=== PATIENT | female | born 1955 | race Caucasian/White ===

== ENCOUNTER 2018-04-01 10:01 | Inpatient (IN) | payer MEDICAID ==
[~2018-04-01] VITALS: Ht 167.6 cm; Wt 106.0 kg
[2018-04-01] MEDS ORDERED: SODIUM CHLORIDE 0.9% 1,000 ML IV ONE ×2 (10:27)
[2018-04-01 11:01] LABS: Basophils # (auto) 0 uL; Basophils % (auto) 0.5 % (0.0-2.0); Eosinophils # (auto) 0 uL; Hematocrit 48.4 % (36.0-46.0); Hemoglobin 15.8 g/dL (12.2-16.2); Lymphocytes # (auto) 0.5 uL; Mean Corpuscular Hemoglobin 28.9 pg (28.0-32.0); Mean Corpuscular Hgb Conc. 32.6 g/dL (32.0-36.0); Mean Corpuscular Volume 88.7 fL (80.0-100.0); Monocytes # (auto) 0.2 uL; Monocytes % (auto) 4.5 % (0.0-12.0); Neutrophils # (auto) 3.1 uL; Nucleated Red Blood Cells % 0.2 %; Platelet Count (auto) 153 10^3/uL (140-450); Red Blood Cells 5.46 10^6/uL (4.0-5.20); Red Cell Distribution Width 14.8 % (11.8-14.3); White Blood Cell 3.8 10^3/uL (4.4-10.8)
[2018-04-01 11:14] LABS: INR 1.04 (0.9-1.15); Partial Thromboplastin Time 23.6 sec (23.78-33.04); Prothrombin Time 11.1 sec (9.27-12.13)
[2018-04-01 11:23] LABS: Albumin 3.2 g/dL (3.4-5.0); BUN/Creatinine Ratio 16.3; Bilirubin, Total 0.6 mg/dL (0.2-1.0); Potassium 3.9 mmol/L (3.5-5.1); Total Protein 7.3 g/dL (6.4-8.2)
[2018-04-01] MEDS ORDERED: FUROSEMIDE 40 MG/4 ML VIAL IV ONE (13:00)
[2018-04-01] MEDS ORDERED: DOCUSATE SOD 100 MG CAP PO PRN (13:45)
[2018-04-01] MEDS ORDERED: MORPHINE SULF(PF) 0.5MG/ML 10ML VIAL IV PRN (13:45)
[2018-04-01] MEDS ORDERED: POTASSIUM CHL 10 Meq TABLET PO ONE (13:45)
[2018-04-01] MEDS ORDERED: NITROGLYCERIN 0.4 MG SL TAB SL PRN (13:45)
[2018-04-01] MEDS ORDERED: ONDANSETRON HCL 4 MG/2 ML VIAL IV PRN (13:45)
[2018-04-01] MEDS ORDERED: ACETAMINOPHEN 325 MG TAB PO PRN (13:45)
[2018-04-01] MEDS ORDERED: TEMAZEPAM 15 MG CAP PO PRN (13:45)
[2018-04-01] MEDS: MULTIPLE VITAMIN TAB PO SCH (13:53)
[2018-04-01] MEDS: SODIUM CHLOR 0.9% PF (SALINE LOCK) 10ML VIAL/SYR IV SCH ×2 (14:00→21:15)
[2018-04-01] MEDS: ENOXAPARIN SOD 100 MG/1 ML SYRINGE SC SCH ×2 (14:05→21:15)
[2018-04-01] MEDS ORDERED: ASPirin-EC 81 mg tab PO ONE (14:15)
[2018-04-01] MEDS ORDERED: CLOPIDOGREL BISULFATE 75 MG TAB PO ONE (14:15)
[2018-04-01 14:33] LABS: Urine Bacteria NONE SEEN /hpf (None Seen); Urine Blood Negative /uL (Negative); Urine WBC 33 /hpf (0 - 5)
[2018-04-01] MEDS ORDERED: LORazepam 2MG/ML-1ML VIAL IV PRN (17:45)
[2018-04-01 18:33] LABS: Cholesterol 187 mg/dL (< 200); HDL Cholesterol 40 mg/dL (40-59); LDL Cholesterol 139 mg/dL (< 100); Triglycerides 80 mg/dL (< 150)
[2018-04-01] MEDS ORDERED: IOHEXOL 350 MG/ML 100ML IJ ONE (19:04)
[2018-04-01] MEDS: BOOST PLUS 8 ounce PO SCH (20:00)
[2018-04-01] MEDS: FAMOTIDINE 20 MG TAB PO SCH (21:15)
[2018-04-01] MEDS: ATORVASTATIN 20 MG TAB PO SCH (21:15)
[2018-04-01] MEDS: HYDROcodone-ACET 5/325MG TAB PO PRN (21:22)
[2018-04-02] MEDS: HYDROcodone-ACET 5/325MG TAB PO PRN ×2 (04:05→08:13)
[2018-04-02] MEDS: cloNIDine HCL 0.1 MG TAB PO PRN ×2 (04:05→08:12)
[2018-04-02 05:13] LABS: Basophils # (auto) 0 uL; Basophils % (auto) 0.6 % (0.0-2.0); Eosinophils # (auto) 0 uL; Eosinophils % (auto) 0.2 % (0.0-7.0); Hematocrit 49.9 % (36.0-46.0); Hemoglobin 16.7 g/dL (12.2-16.2); Lymphocytes % (auto) 18.4 % (10.0-50.0); Mean Corpuscular Hemoglobin 29.2 pg (28.0-32.0); Mean Corpuscular Hgb Conc. 33.5 g/dL (32.0-36.0); Mean Corpuscular Volume 87.1 fL (80.0-100.0); Monocytes # (auto) 0.4 uL; Monocytes % (auto) 7.2 % (0.0-12.0); Neutrophils # (auto) 3.9 uL; Neutrophils % (auto) 73.6 % (37.0-80.0); Nucleated Red Blood Cells % 0.2 %; Platelet Count (auto) 154 10^3/uL (140-450); Red Blood Cells 5.73 10^6/uL (4.0-5.20); White Blood Cell 5.3 10^3/uL (4.4-10.8)
[2018-04-02 05:23] LABS: Albumin 3.4 g/dL (3.4-5.0); BUN/Creatinine Ratio 16.4; Calcium 8.1 mg/dL (8.5-10.1)
[2018-04-02 05:25] LABS: Bilirubin, Total 1.4 mg/dL (0.2-1.0); Total Protein 7.5 g/dL (6.4-8.2)
[2018-04-02 05:33] LABS: Potassium 2.9 mmol/L (3.5-5.1)
[2018-04-02] MEDS ORDERED: POTASSIUM CHLORIDE 40 MEQ, LIDOCAINE 1% (LOCAL ANESTH.) 4 ML in SODIUM CHL 0.9% 250 ML IV ONE (05:45)
[2018-04-02] MEDS ORDERED: POTASSIUM CHL 20 Meq TABLET PO ONE (05:45)
[2018-04-02] MEDS: SODIUM CHLOR 0.9% PF (SALINE LOCK) 10ML VIAL/SYR IV SCH ×3 (06:00→22:48)
[2018-04-02] MEDS: POTASSIUM CHL 20MEQ/100ML 100 ML IV SCH ×2 (07:03→09:06)
[2018-04-02] MEDS: BOOST PLUS 8 ounce PO SCH ×3 (08:00→18:45)
[2018-04-02 09:58] LABS: Folate (Folic Acid) 11.82 ng/mL (5.38-24)
[2018-04-02] MEDS ORDERED: CLOPIDOGREL BISULFATE 75 MG TAB PO SCH (10:00)
[2018-04-02] MEDS ORDERED: POTASSIUM CHL 10 Meq TABLET PO SCH (10:00)
[2018-04-02] MEDS ORDERED: ASPirin-EC 81 mg tab PO SCH (10:00)
[2018-04-02] MEDS: MULTIPLE VITAMIN TAB PO SCH (10:04)
[2018-04-02] MEDS: FAMOTIDINE 20 MG TAB PO SCH ×2 (10:04→22:48)
[2018-04-02] MEDS: ENOXAPARIN SOD 100 MG/1 ML SYRINGE SC SCH ×2 (10:05→22:48)
[2018-04-02] MEDS: FUROSEMIDE 40 MG/4 ML VIAL IV SCH (10:12)
[2018-04-02] MEDS ORDERED: METOPROLOL TARTRATE 25 MG TAB PO ONE (13:15)
[2018-04-02] MEDS ORDERED: LORazepam 2MG/ML-1ML VIAL IV PRN (13:30)
[2018-04-02] MEDS ORDERED: LEV100T PO (14:40)
[2018-04-02] MEDS ORDERED: PAR20T PO (14:40)
[2018-04-02] MEDS ORDERED: CYAN100060 IM (14:40)
[2018-04-02] MEDS ORDERED: MORP-74 PO (14:40)
[2018-04-02] MEDS: MORPHINE SULF 30 mg ER tab PO SCH ×2 (14:56→22:48)
[2018-04-02 22:07] VITALS: BP 140/94
[2018-04-02 22:12] VITALS: BP 146/84
[2018-04-02] MEDS: ATORVASTATIN 20 MG TAB PO SCH (22:48)
[2018-04-02] MEDS: METOPROLOL TARTRATE 25 MG TAB PO SCH (22:48)
[2018-04-03 00:03] VITALS: BP 121/80
[2018-04-03] MEDS: HYDROcodone-ACET 5/325MG TAB PO PRN ×2 (01:55→16:26)
[2018-04-03] MEDS: SODIUM CHLOR 0.9% PF (SALINE LOCK) 10ML VIAL/SYR IV SCH ×3 (06:00→21:14)
[2018-04-03 06:11] LABS: Basophils # (auto) 0 uL; Basophils % (auto) 0.5 % (0.0-2.0); Eosinophils # (auto) 0 uL; Eosinophils % (auto) 0.4 % (0.0-7.0); Hematocrit 51.4 % (36.0-46.0); Hemoglobin 17.1 g/dL (12.2-16.2); Lymphocytes % (auto) 22.1 % (10.0-50.0); Mean Corpuscular Hemoglobin 29.3 pg (28.0-32.0); Mean Corpuscular Hgb Conc. 33.3 g/dL (32.0-36.0); Mean Corpuscular Volume 88.1 fL (80.0-100.0); Monocytes # (auto) 0.6 uL; Monocytes % (auto) 13.1 % (0.0-12.0); Neutrophils % (auto) 63.9 % (37.0-80.0); Nucleated Red Blood Cells % 0.1 %; Platelet Count (auto) 137 10^3/uL (140-450); Red Blood Cells 5.84 10^6/uL (4.0-5.20); White Blood Cell 4.7 10^3/uL (4.4-10.8)
[2018-04-03 07:39] LABS: Albumin 3.6 g/dL (3.4-5.0); BUN/Creatinine Ratio 17.2; Bilirubin, Total 1.7 mg/dL (0.2-1.0); Calcium 8.9 mg/dL (8.5-10.1); Magnesium 2.6 mg/dL (1.6-2.6); Potassium 3.9 mmol/L (3.5-5.1); Total Protein 8.1 g/dL (6.4-8.2)
[2018-04-03] MEDS: BOOST PLUS 8 ounce PO SCH ×3 (08:00→18:00)
[2018-04-03] MEDS: FUROSEMIDE 40 MG/4 ML VIAL IV SCH (09:51)
[2018-04-03] MEDS: POTASSIUM CHL 10 Meq TABLET PO SCH (09:52)
[2018-04-03] MEDS: METOPROLOL TARTRATE 25 MG TAB PO SCH ×2 (09:52→21:14)
[2018-04-03] MEDS: FAMOTIDINE 20 MG TAB PO SCH ×2 (09:53→21:15)
[2018-04-03] MEDS: MORPHINE SULF 30 mg ER tab PO SCH ×3 (09:53→21:15)
[2018-04-03] MEDS: MULTIPLE VITAMIN TAB PO SCH (09:53)
[2018-04-03 13:00] VITALS: BP 103/70
[2018-04-03 15:00] VITALS: BP 109/76
[2018-04-03 17:00] VITALS: BP 109/76
[2018-04-03] MEDS: ATORVASTATIN 20 MG TAB PO SCH (21:14)
[2018-04-03 22:00] VITALS: BP 108/74
[2018-04-04 05:00] VITALS: BP 94/65
[2018-04-04 05:51] LABS: Basophils # (auto) 0 uL; Basophils % (auto) 0.5 % (0.0-2.0); Eosinophils # (auto) 0.1 uL; Hemoglobin 17.4 g/dL (12.2-16.2); Lymphocytes # (auto) 1.1 uL; Lymphocytes % (auto) 24.8 % (10.0-50.0); Mean Corpuscular Hemoglobin 29.2 pg (28.0-32.0); Mean Corpuscular Hgb Conc. 33.4 g/dL (32.0-36.0); Mean Corpuscular Volume 87.5 fL (80.0-100.0); Monocytes # (auto) 0.5 uL; Monocytes % (auto) 11.1 % (0.0-12.0); Neutrophils # (auto) 2.7 uL; Neutrophils % (auto) 61.6 % (37.0-80.0); Nucleated Red Blood Cells % 0.2 %; Platelet Count (auto) 145 10^3/uL (140-450); Red Blood Cells 5.94 10^6/uL (4.0-5.20); White Blood Cell 4.4 10^3/uL (4.4-10.8)
[2018-04-04] MEDS: SODIUM CHLOR 0.9% PF (SALINE LOCK) 10ML VIAL/SYR IV SCH ×3 (06:15→22:20)
[2018-04-04 06:17] LABS: Albumin 3.4 g/dL (3.4-5.0); Calcium 8.5 mg/dL (8.5-10.1); Magnesium 2.4 mg/dL (1.6-2.6)
[2018-04-04 06:19] LABS: Potassium 2.9 mmol/L (3.5-5.1)
[2018-04-04 06:20] LABS: BUN/Creatinine Ratio 23.3
[2018-04-04 06:25] LABS: Bilirubin, Total 1.8 mg/dL (0.2-1.0); Total Protein 7.5 g/dL (6.4-8.2)
[2018-04-04] MEDS ORDERED: POTASSIUM CHL 20MEQ/100ML 100 ML IV ONE (07:45)
[2018-04-04] MEDS: BOOST PLUS 8 ounce PO SCH ×3 (08:25→18:00)
[2018-04-04 09:00] VITALS: BP 117/71
[2018-04-04] MEDS: HYDROcodone-ACET 5/325MG TAB PO PRN ×2 (09:06→17:56)
[2018-04-04] MEDS: FUROSEMIDE 40 MG/4 ML VIAL IV SCH (10:25)
[2018-04-04] MEDS: ASPirin-EC 81 mg tab PO SCH (10:26)
[2018-04-04] MEDS: POTASSIUM CHL 10 Meq TABLET PO SCH (10:26)
[2018-04-04] MEDS: METOPROLOL TARTRATE 25 MG TAB PO SCH ×2 (10:26→21:28)
[2018-04-04] MEDS: MORPHINE SULF 30 mg ER tab PO SCH ×2 (10:27→21:28)
[2018-04-04] MEDS: FAMOTIDINE 20 MG TAB PO SCH ×2 (10:27→21:29)
[2018-04-04] MEDS: MULTIPLE VITAMIN TAB PO SCH (10:27)
[2018-04-04 13:00] VITALS: BP 95/53
[2018-04-04 17:00] VITALS: BP 123/56
[2018-04-04] MEDS: ATORVASTATIN 20 MG TAB PO SCH (21:27)
[2018-04-04 21:39] VITALS: BP 111/75
[2018-04-05 04:48] VITALS: BP 116/64
[2018-04-05] MEDS: LEVOTHYROXINE SODIUM 100 MCG TAB PO SCH (06:00)
[2018-04-05] MEDS: SODIUM CHLOR 0.9% PF (SALINE LOCK) 10ML VIAL/SYR IV SCH ×3 (06:00→21:53)
[2018-04-05 09:00] VITALS: BP 123/42
[2018-04-05] MEDS: HYDROcodone-ACET 5/325MG TAB PO PRN ×3 (09:15→17:05)
[2018-04-05] MEDS: ASPirin-EC 81 mg tab PO SCH (09:40)
[2018-04-05] MEDS: BOOST PLUS 8 ounce PO SCH ×3 (09:40→18:00)
[2018-04-05] MEDS: POTASSIUM CHL 10 Meq TABLET PO SCH (09:41)
[2018-04-05] MEDS: MULTIPLE VITAMIN TAB PO SCH (09:41)
[2018-04-05] MEDS: FAMOTIDINE 20 MG TAB PO SCH ×2 (09:42→21:53)
[2018-04-05] MEDS: MORPHINE SULF 30 mg ER tab PO SCH ×2 (09:42→21:53)
[2018-04-05] MEDS: FUROSEMIDE 20 MG TAB PO SCH (09:43)
[2018-04-05] MEDS: METOPROLOL TARTRATE 25 MG TAB PO SCH ×2 (10:00→21:52)
[2018-04-05 13:00] VITALS: BP 110/59
[2018-04-05 17:00] VITALS: BP 90/49
[2018-04-05] MEDS ORDERED: LORazepam 0.5 MG TAB PO PRN (17:00)
[2018-04-05] MEDS ORDERED: LORazepam 2MG/ML-1ML VIAL IV ONE (17:00)
[2018-04-05] MEDS: ATORVASTATIN 20 MG TAB PO SCH (21:52)
[2018-04-05 22:04] VITALS: BP 128/65
[2018-04-06 05:15] VITALS: BP 91/74
[2018-04-06] MEDS: SODIUM CHLOR 0.9% PF (SALINE LOCK) 10ML VIAL/SYR IV SCH ×2 (06:00→19:44)
[2018-04-06] MEDS: HYDROcodone-ACET 5/325MG TAB PO PRN (06:35)
[2018-04-06] MEDS: LEVOTHYROXINE SODIUM 100 MCG TAB PO SCH (06:36)
[2018-04-06 09:09] VITALS: BP_SYST 104; BP_SYST 125; BP_DIAS 64; BP_DIAS 69
[2018-04-06 09:36] VITALS: BP 104/69
[2018-04-06] MEDS: FAMOTIDINE 20 MG TAB PO SCH (10:34)
[2018-04-06] MEDS: ASPirin-EC 81 mg tab PO SCH (10:34)
[2018-04-06] MEDS: MULTIPLE VITAMIN TAB PO SCH (10:35)
[2018-04-06] MEDS: POTASSIUM CHL 10 Meq TABLET PO SCH (10:36)
[2018-04-06] MEDS: FUROSEMIDE 20 MG TAB PO SCH (10:36)
[2018-04-06] MEDS: MORPHINE SULF 30 mg ER tab PO SCH (10:37)
[2018-04-06] MEDS: METOPROLOL TARTRATE 25 MG TAB PO SCH (10:37)
[2018-04-06] MEDS: BOOST PLUS 8 ounce PO SCH ×3 (10:38→18:00)
[2018-04-06 13:23] VITALS: BP 120/80
[2018-04-06 17:16] VITALS: BP 113/73
[2018-04-06 17:22] VITALS: BP 120/80
== END 2018-04-06 19:33 | disposition home or self-care (01) | DRG 45 ==
LOC: ER 10:01 → EDBD 10:01 → TELE 10:02 → TELE-WESTW 04-03 14:42
PROVIDERS: ADMIT Internal Medicine; ATTEND Internal Medicine
PROC: 5A09457 Assistance with Respiratory Ventilation, 24-96 Consecutive Hours, Continuous Positive Airway Pressure (ICD-10-PCS; principal; 2018-04-03)
DX: I63.9 Cerebral infarction, unspecified (principal); I21.4 Non-ST elevation (NSTEMI) myocardial infarction; I61.9 Nontraumatic intracerebral hemorrhage, unspecified; J96.21 Acute and chronic respiratory failure with hypoxia; G93.6 Cerebral edema; D75.1 Secondary polycythemia; E83.51 Hypocalcemia; I50.43 Acute on chronic combined systolic (congestive) and diastolic (congestive) heart failure; E44.0 Moderate protein-calorie malnutrition; I13.0 Hypertensive heart and chronic kidney disease with heart failure and stage 1 through stage 4 chronic kidney disease, or unspecified chronic kidney disease; N39.0 Urinary tract infection, site not specified; Z88.2 Allergy status to sulfonamides; E06.3 Autoimmune thyroiditis; E87.6 Hypokalemia; F17.200 Nicotine dependence, unspecified, uncomplicated; F32.9 Major depressive disorder, single episode, unspecified; G89.4 Chronic pain syndrome; G92 Toxic encephalopathy; J44.1 Chronic obstructive pulmonary disease with (acute) exacerbation; J98.11 Atelectasis; K80.70 Calculus of gallbladder and bile duct without cholecystitis without obstruction; N18.2 Chronic kidney disease, stage 2 (mild); W18.39XA Other fall on same level, initial encounter; Y93.89 Activity, other specified; Y92.89 Other specified places as the place of occurrence of the external cause; Z79.02 Long term (current) use of antithrombotics/antiplatelets; Z79.82 Long term (current) use of aspirin; Z79.899 Other long term (current) drug therapy; Z80.1 Family history of malignant neoplasm of trachea, bronchus and lung; Z99.81 Dependence on supplemental oxygen
CPT/HCPCS: 36415; 36600; 70450; 70551; 71045; 71275; 73502; 78582; 80053; 80061; 81001; 82607; 82746; 82805; 82962; 83735; 83880; 84132; 84443; 84484; 85025; 85379; 85610; 85730; 87086; 92610; 93005; 93306; 93886; 94660; 95819; 96361; 96374; J2001; J2405; J3480

== ENCOUNTER 2018-11-03 09:24 | Emergency (ER) | payer MEDICAID ==
[~2018-11-03] VITALS: Ht 172.7 cm; Wt 113.4 kg
[~2018-11-03 09:24] MED LIST: CYAN100060 IM; LEV100T PO; MORP-74 PO; PAR20T PO
[2018-11-03 09:51] LABS: Eosinophils # (auto) 0.2 uL; Eosinophils % (auto) 1.7 % (0.0-7.0); Nucleated Red Blood Cells % 0.2 %
[2018-11-03 09:52] LABS: Basophils # (auto) 0.1 uL; Basophils % (auto) 0.6 % (0.0-2.0); Hematocrit 53.9 % (36.0-46.0); Hemoglobin 17.7 g/dL (12.2-16.2); Lymphocytes # (auto) 1.2 uL; Lymphocytes % (auto) 10.6 % (10.0-50.0); Mean Corpuscular Hemoglobin 28.8 pg (28.0-32.0); Mean Corpuscular Hgb Conc. 32.9 g/dL (32.0-36.0); Mean Corpuscular Volume 87.7 fL (80.0-100.0); Monocytes # (auto) 0.6 uL; Neutrophils # (auto) 9.2 uL; Neutrophils % (auto) 82.1 % (37.0-80.0); Platelet Count (auto) 125 10^3/uL (140-450); Red Blood Cells 6.15 10^6/uL (4.0-5.20); Red Cell Distribution Width 15.3 % (11.8-14.3); White Blood Cell 11.2 10^3/uL (4.4-10.8)
[2018-11-03 10:08] LABS: Alanine Aminotransferase 14 U/L (13-56); Albumin 2.7 g/dL (3.4-5.0); Anion Gap 13 (5-15); Aspartate Aminotransferase 34 U/L (15-37); BUN/Creatinine Ratio 8.2; Blood Urea Nitrogen 8 mg/dL (7-18); Calcium 8.5 mg/dL (8.5-10.1); Carbon Dioxide 23 mmol/L (21-32); Chloride 100 mmol/L (98-107); GFR African American > 60 mL/min; GFR Non-African American > 60 mL/min; Glucose 217 mg/dL (74-106); Magnesium 2.2 mg/dL (1.6-2.6); Potassium 3.9 mmol/L (3.5-5.1); Sodium 136 mmol/L (136-145)
[2018-11-03 10:13] LABS: Alkaline Phosphatase 103 U/L (45-117); Bilirubin, Total 1.8 mg/dL (0.2-1.0)
[2018-11-03] MEDS ORDERED: SUCCINYLCHOLINE CHLORIDE 20 MG/ML 10ML VIAL IV ONE (11:00)
[2018-11-03] MEDS ORDERED: ETOMIDATE (2MG/ML) 20ML VIAL IV ONE (11:00)
[2018-11-03 11:15] VITALS: BP 150/108
[2018-11-03] MEDS ORDERED: MIDAZOLAM DRIP 50 mg/50mL 50 ML IV SCH (11:20)
[2018-11-03] MEDS ORDERED: PROPOFOL 100 ML IV SCH (11:20)
[2018-11-03] MEDS ORDERED: MIDAZOLAM DRIP 50 mg/50mL 50 ML IV ONE (11:21)
[2018-11-03 11:30] VITALS: BP 146/110
[2018-11-03] MEDS ORDERED: fentaNYL Drip 2500mCg/250mlNS 250 ML IV SCH (11:34)
[2018-11-03] MEDS ORDERED: fentaNYL Drip 2500mCg/250mlNS 250 ML IV ONE (11:38)
[2018-11-03 12:57] LABS: Urine Bacteria MANY /hpf (None Seen); Urine Blood 1+ /uL (Negative); Urine Budding Yeast OCCASIONAL /hpf (None Seen); Urine Mucus FEW (None Seen); Urine Specific Gravity 1.024 (1.001-1.035); Urine WBC 164 /hpf (0 - 5); Urine WBC Clumps PRESENT /hpf (None Seen)
== END 2018-11-03 10:23 | disposition short-term general hospital (02) ==
LOC: ER 09:24 → EDBD 09:24 → ER 10:23
DX: I63.9 Cerebral infarction, unspecified (principal); R79.89 Other specified abnormal findings of blood chemistry
CPT/HCPCS: 31500; 36415; 70450; 71045; 73610; 80053; 81001; 83735; 83880; 84484; 85025; 93005; 96365; 96368; 99291; J0330; J2250; J2704; 94002; A4565

== ENCOUNTER 2019-09-13 12:30 | Emergency (ER) | payer MEDICAID ==
[~2019-09-13] VITALS: Ht 175.3 cm; Wt 108.9 kg
[~2019-09-13 12:30] MED LIST changes: -MORP-74 PO; +MORP30TA5 PO
[2019-09-13 16:49] VITALS: BP 167/120
[2019-09-13] MEDS ORDERED: MEPERIDINE HCL (50 MG/ML) 1 ML VIAL IM ONE (18:00)
== END 2019-09-13 18:39 | disposition home or self-care (01) ==
LOC: ER 12:31
DX: G54.6 Phantom limb syndrome with pain (principal); I50.9 Heart failure, unspecified; N18.9 Chronic kidney disease, unspecified; Z88.2 Allergy status to sulfonamides; Z79.899 Other long term (current) drug therapy
CPT/HCPCS: 96372; 99283; J2175

== ENCOUNTER 2020-11-23 19:27 | Emergency (ER) | payer MEDICAID ==
[~2020-11-23] VITALS: Ht 167.6 cm; Wt 131.5 kg
[2020-11-23 21:42] LABS: Basophils # (auto) 0 10 ^3/uL (0-0.2); Basophils % (auto) 0.9 % (0.0-2.0); Eosinophils # (auto) 0 10 ^3/uL (0-0.8); Eosinophils % (auto) 0.9 % (0.0-7.0); Hematocrit 47.4 % (36.0-46.0); Hemoglobin 14.7 g/dL (12.2-16.2); Lymphocytes # (auto) 0.7 10 ^3/uL (0.4-5.4); Mean Corpuscular Hemoglobin 24.5 pg (28.0-32.0); Mean Corpuscular Hgb Conc. 31.1 g/dL (32.0-36.0); Mean Corpuscular Volume 78.9 fL (80.0-100.0); Monocytes # (auto) 0.2 10 ^3/uL (0-1.3); Monocytes % (auto) 5.6 % (0.0-12.0); Neutrophils # (auto) 3.4 10 ^3/uL (1.6-8.6); Neutrophils % (auto) 77.6 % (37.0-80.0); Nucleated Red Blood Cells % 0.4 %; Platelet Count (auto) 162 10^3/uL (140-450); Red Blood Cells 6.01 10^6/uL (4.0-5.20); Red Cell Distribution Width 19.1 % (11.8-14.3); White Blood Cell 4.4 10^3/uL (4.4-10.8)
[2020-11-23 22:02] LABS: Albumin 3.2 g/dL (3.4-5.0); Anion Gap 0 (5-15); Blood Urea Nitrogen 13 mg/dL (7-18); Calcium 8.1 mg/dL (8.5-10.1); Carbon Dioxide 33 mmol/L (21-32); Chloride 102 mmol/L (98-107); Glucose 103 mg/dL (74-106); Potassium 4.8 mmol/L (3.5-5.1); Sodium 135 mmol/L (136-145)
[2020-11-23 22:10] LABS: Alanine Aminotransferase 12 U/L (13-56); Alkaline Phosphatase 100 U/L (45-117); Aspartate Aminotransferase 9 U/L (15-37); BUN/Creatinine Ratio 13.3; Bilirubin, Total 0.5 mg/dL (0.2-1.0); GFR African American 74 mL/min; GFR Non-African American 61 mL/min; Total Protein 7.6 g/dL (6.4-8.2)
[2020-11-23 22:41] LABS: INR 2.28 (0.9-1.15)
[2020-11-24 04:10] LABS: Urine Bacteria MANY /hpf (None Seen); Urine Blood Negative /uL (Negative); Urine Hyaline Cast FEW /lpf (0 - 2); Urine Mucus FEW (None Seen); Urine Specific Gravity 1.024 (1.001-1.035); Urine WBC 12 /hpf (0 - 5)
[2020-11-24] MEDS ORDERED: CEFTRIAXONE SODIUM 2 GM in D5W 5% 50 ML IV ONE (04:30)
[2020-11-24] MEDS ORDERED: cefTRIAXone 1GM/50ML D5W 50 ML IV ONE (05:08)
[2020-11-24] MEDS ORDERED: cefTRIAXone SOD 1,000 MG VL ONE (05:08)
[2020-11-24 06:24] VITALS: BP 146/86
== END 2020-11-24 06:28 | disposition home or self-care (01) ==
LOC: EDBD 19:27 → ER 19:27
DX: T40.2X1A Poisoning by other opioids, accidental (unintentional), initial encounter (principal); N39.0 Urinary tract infection, site not specified; Z79.899 Other long term (current) drug therapy; Z88.1 Allergy status to other antibiotic agents; Y92.89 Other specified places as the place of occurrence of the external cause
CPT/HCPCS: 36415; 70450; 71045; 80053; 81001; 83605; 83735; 83880; 84484; 85025; 85610; 93005; 96360; 96365; 99285; J0696; J7060

== ENCOUNTER 2022-08-10 23:04 | Inpatient (IN) | payer MEDICAID ==
[~2022-08-10] VITALS: Ht 175.3 cm; Wt 133.1 kg
[2022-08-11] VITALS (21 sets, daily range): BP systolic 107–161; BP diastolic 67–90
[2022-08-11 01:17] LABS: Albumin 2.6 g/dL (3.4-5.0); Potassium 4.9 mmol/L (3.5-5.1)
[2022-08-11 01:21] LABS: Bilirubin, Total 2.3 mg/dL (0.2-1.0); Total Protein 6.4 g/dL (6.4-8.2)
[2022-08-11 01:23] LABS: Basophils # (auto) 0 10 ^3/uL (0-0.2); Basophils % (auto) 0.3 % (0.0-2.0); Eosinophils # (auto) 0 10 ^3/uL (0-0.8); Eosinophils % (auto) 0.1 % (0.0-7.0); Hemoglobin 16.7 g/dL (12.2-16.2); Lymphocytes # (auto) 0.6 10 ^3/uL (0.4-5.4); Lymphocytes % (auto) 6.7 % (10.0-50.0); Mean Corpuscular Hemoglobin 24.5 pg (28.0-32.0); Mean Corpuscular Hgb Conc. 31.5 g/dL (32.0-36.0); Mean Corpuscular Volume 77.8 fL (80.0-100.0); Monocytes # (auto) 0.7 10 ^3/uL (0-1.3); Neutrophils # (auto) 7.5 10 ^3/uL (1.6-8.6); Neutrophils % (auto) 84.9 % (37.0-80.0); Nucleated Red Blood Cells % 0.6 %; Red Blood Cells 6.81 10^6/uL (4.0-5.20); White Blood Cell 8.8 10^3/uL (4.4-10.8)
[2022-08-11 01:26] LABS: Red Cell Distribution Width 20.5 % (11.8-14.3)
[2022-08-11] MEDS ORDERED: ENOXAPARIN SOD 120 MG/0.8 ML SYRINGE SC ONE (02:00)
[2022-08-11] MEDS ORDERED: FUROSEMIDE 100 MG/10ML VIAL IV ONE (02:15)
[2022-08-11] MEDS ORDERED: ALBUMIN 25% 100 ML IV ONE (05:15)
[2022-08-11] MEDS: SODIUM CHLOR 0.9% PF (SALINE LOCK) 10ML VIAL/SYR IV SCH ×3 (06:16→21:37)
[2022-08-11 06:28] LABS: Albumin 2.7 g/dL (3.4-5.0); BUN/Creatinine Ratio 10.3; Calcium 8.3 mg/dL (8.5-10.1)
[2022-08-11] MEDS ORDERED: NITROGLYCERIN 0.4 MG SL TAB SL PRN (06:30)
[2022-08-11] MEDS ORDERED: MORPHINE SULFATE INJ 2 MG/ml SYRG IV PRN (06:30)
[2022-08-11 06:42] LABS: Bilirubin, Total 2.6 mg/dL (0.2-1.0); Total Protein 6.5 g/dL (6.4-8.2)
[2022-08-11] MEDS: LEVOTHYROXINE SODIUM 100 MCG TAB PO SCH (06:45)
[2022-08-11 07:01] LABS: Basophils # (auto) 0 10 ^3/uL (0-0.2); Eosinophils # (auto) 0 10 ^3/uL (0-0.8); Eosinophils % (auto) 0.1 % (0.0-7.0); Monocytes # (auto) 0.7 10 ^3/uL (0-1.3); Red Blood Cells 7.07 10^6/uL (4.0-5.20)
[2022-08-11 07:03] LABS: Basophils % (auto) 0.3 % (0.0-2.0); Hematocrit 54.8 % (36.0-46.0); Hemoglobin 17.3 g/dL (12.2-16.2); Lymphocytes # (auto) 0.7 10 ^3/uL (0.4-5.4); Lymphocytes % (auto) 7.8 % (10.0-50.0); Mean Corpuscular Hemoglobin 24.5 pg (28.0-32.0); Mean Corpuscular Hgb Conc. 31.6 g/dL (32.0-36.0); Mean Corpuscular Volume 77.5 fL (80.0-100.0); Monocytes % (auto) 7.5 % (0.0-12.0); Neutrophils # (auto) 7.7 10 ^3/uL (1.6-8.6); Neutrophils % (auto) 84.3 % (37.0-80.0); Nucleated Red Blood Cells % 0.5 %; White Blood Cell 9.2 10^3/uL (4.4-10.8)
[2022-08-11 07:18] LABS: Red Cell Distribution Width 20.8 % (11.8-14.3)
[2022-08-11 08:08] LABS: Urine Bacteria MOD /hpf (None Seen); Urine Blood Negative /uL (Negative); Urine Hyaline Cast FEW /lpf (0 - 2); Urine Specific Gravity 1.006 (1.001-1.035); Urine WBC 1 /hpf (0 - 5)
[2022-08-11] MEDS: FUROSEMIDE 100 MG/10ML VIAL IV SCH (10:31)
[2022-08-11] MEDS: ENOXAPARIN SOD 120 MG/0.8 ML SYRINGE SC SCH (10:31)
[2022-08-11] MEDS: HYDROcodone-ACET 5/325MG TAB PO PRN ×3 (10:35→19:55)
[2022-08-11] MEDS ORDERED: OXY5T PO (11:15)
[2022-08-11] MEDS ORDERED: WARF3TAB22 PO (11:15)
[2022-08-11 14:41] LABS: BUN/Creatinine Ratio 9.5; Potassium 3.5 mmol/L (3.5-5.1)
[2022-08-12] VITALS (29 sets, daily range): BP systolic 96–144; BP diastolic 58–107
[2022-08-12] MEDS: HYDROcodone-ACET 5/325MG TAB PO PRN ×4 (03:02→21:03)
[2022-08-12] MEDS: LEVOTHYROXINE SODIUM 100 MCG TAB PO SCH (05:55)
[2022-08-12] MEDS: SODIUM CHLOR 0.9% PF (SALINE LOCK) 10ML VIAL/SYR IV SCH ×3 (05:55→21:04)
[2022-08-12 07:00] LABS: Alanine Aminotransferase 9 U/L (13-56); Alkaline Phosphatase 65 U/L (45-117); Anion Gap 12 (5-15); Aspartate Aminotransferase 16 U/L (15-37); BUN/Creatinine Ratio 14.1; Blood Urea Nitrogen 14 mg/dL (7-18); Carbon Dioxide 26 mmol/L (21-32); Chloride 97 mmol/L (98-107); GFR African American 73 mL/min; GFR Non-African American 60 mL/min; Glucose 89 mg/dL (74-106); Potassium 3.5 mmol/L (3.5-5.1); Sodium 135 mmol/L (136-145)
[2022-08-12 07:01] LABS: Albumin 2.7 g/dL (3.4-5.0); Bilirubin, Total 2.5 mg/dL (0.2-1.0); Calcium 8.2 mg/dL (8.5-10.1); Magnesium 1.8 mg/dL (1.6-2.6); Total Protein 7.1 g/dL (6.4-8.2)
[2022-08-12 07:36] LABS: Hematocrit 50.9 % (36.0-46.0); Hemoglobin 16.2 g/dL (12.2-16.2); White Blood Cell 7.1 10^3/uL (4.4-10.8)
[2022-08-12 07:37] LABS: Mean Corpuscular Hemoglobin 24.4 pg (28.0-32.0); Mean Corpuscular Hgb Conc. 31.7 g/dL (32.0-36.0); Mean Corpuscular Volume 76.9 fL (80.0-100.0); Red Blood Cells 6.62 10^6/uL (4.0-5.20)
[2022-08-12 07:54] LABS: Red Cell Distribution Width 20.6 % (11.8-14.3)
[2022-08-12 08:33] LABS: Basophils % (manual) 0 (0.0-2.0); Blast Cells 0; Metamyelocytes % 0; Myelocytes % 0; Promyelocytes % 0; Reactive Lymphocytes 0
[2022-08-12 08:52] LABS: Band Neutrophils % (manual) 1; Eosinophils % (manual) 1 (0-7); Lymphocytes % (manual) 9 (10.0-50.0); Monocytes % (manual) 9 (0-12)
[2022-08-12] MEDS: ENOXAPARIN SOD 120 MG/0.8 ML SYRINGE SC SCH (10:25)
[2022-08-12] MEDS: FUROSEMIDE 100 MG/10ML VIAL IV SCH (10:25)
[2022-08-12] MEDS: MORPHINE SULFATE INJ 2 MG/ml SYRG IV PRN (17:08)
[2022-08-12] MEDS ORDERED: IOHEXOL 350 MG/ML 100ML IJ ONE (17:28)
[2022-08-12] MEDS ORDERED: HEPARIN SODIUM (PORCINE) 5000 UNITS/ML 1ML VIAL IV ONE (18:15)
[2022-08-12] MEDS ORDERED: HEPARIN DRIP/D5W 100UNITS/ML 250 ML IV SCH (18:15)
[2022-08-12] MEDS: IPRATROPIUM BROM 0.5 MG/2.5ML INH SOL NEB SCH (18:22)
[2022-08-12] MEDS: ALBUTEROL SULF 2.5 MG/0.5ML(0.5%) NEB SOLN NEB SCH (18:22)
[2022-08-12 18:46] LABS: Eosinophils # (auto) 0 10 ^3/uL (0-0.8); Eosinophils % (auto) 0.3 % (0.0-7.0); Hemoglobin 16.9 g/dL (12.2-16.2); Lymphocytes # (auto) 0.5 10 ^3/uL (0.4-5.4); Mean Corpuscular Hgb Conc. 31.6 g/dL (32.0-36.0); Monocytes # (auto) 0.4 10 ^3/uL (0-1.3); Monocytes % (auto) 5.9 % (0.0-12.0)
[2022-08-12 18:49] LABS: Basophils # (auto) 0.1 10 ^3/uL (0-0.2); Basophils % (auto) 0.7 % (0.0-2.0); Hematocrit 53.4 % (36.0-46.0); Lymphocytes % (auto) 6.7 % (10.0-50.0); Mean Corpuscular Hemoglobin 24.2 pg (28.0-32.0); Mean Corpuscular Volume 76.7 fL (80.0-100.0); Neutrophils # (auto) 6.2 10 ^3/uL (1.6-8.6); Neutrophils % (auto) 86.4 % (37.0-80.0); Nucleated Red Blood Cells % 0.2 %; Red Blood Cells 6.97 10^6/uL (4.0-5.20); White Blood Cell 7.2 10^3/uL (4.4-10.8)
[2022-08-12 18:54] LABS: Red Cell Distribution Width 20.7 % (11.8-14.3)
[2022-08-12 19:03] LABS: INR 1.18 (0.9-1.15); Partial Thromboplastin Time 33.3 sec (24.6-33.4)
[2022-08-13] VITALS (24 sets, daily range): BP systolic 109–152; BP diastolic 61–103
[2022-08-13 01:59] LABS: INR 1.17 (0.9-1.15)
[2022-08-13] MEDS ORDERED: HEPARIN DRIP/D5W 100UNITS/ML 250 ML IV SCH (03:15)
[2022-08-13] MEDS: IPRATROPIUM BROM 0.5 MG/2.5ML INH SOL NEB SCH ×3 (06:07→18:48)
[2022-08-13] MEDS: ALBUTEROL SULF 2.5 MG/0.5ML(0.5%) NEB SOLN NEB SCH ×3 (06:07→18:49)
[2022-08-13] MEDS: LEVOTHYROXINE SODIUM 100 MCG TAB PO SCH (06:30)
[2022-08-13] MEDS: SODIUM CHLOR 0.9% PF (SALINE LOCK) 10ML VIAL/SYR IV SCH ×3 (06:30→22:19)
[2022-08-13] MEDS: MORPHINE SULFATE INJ 2 MG/ml SYRG IV PRN ×2 (06:32→11:59)
[2022-08-13] MEDS: HYDROcodone-ACET 5/325MG TAB PO PRN ×2 (07:37→20:43)
[2022-08-13 08:59] LABS: Folate (Folic Acid) 9.68 ng/mL (5.38-24)
[2022-08-13] MEDS: FUROSEMIDE 100 MG/10ML VIAL IV SCH (10:00)
[2022-08-13 10:25] LABS: Albumin 2.8 g/dL (3.4-5.0); BUN/Creatinine Ratio 17.6; Calcium 8.4 mg/dL (8.5-10.1); Potassium 3.4 mmol/L (3.5-5.1)
[2022-08-13 10:29] LABS: Basophils # (auto) 0 10 ^3/uL (0-0.2); Basophils % (auto) 0.2 % (0.0-2.0); Eosinophils # (auto) 0 10 ^3/uL (0-0.8); Eosinophils % (auto) 0.5 % (0.0-7.0); Hemoglobin 16.5 g/dL (12.2-16.2); Lymphocytes # (auto) 0.6 10 ^3/uL (0.4-5.4); Mean Corpuscular Volume 76.8 fL (80.0-100.0); Monocytes # (auto) 0.6 10 ^3/uL (0-1.3); Nucleated Red Blood Cells % 0.3 %
[2022-08-13 10:30] LABS: Bilirubin, Total 1.5 mg/dL (0.2-1.0); Total Protein 7.2 g/dL (6.4-8.2)
[2022-08-13 10:32] LABS: Hematocrit 52.4 % (36.0-46.0); INR 1.15 (0.9-1.15); Lymphocytes % (auto) 9.9 % (10.0-50.0); Mean Corpuscular Hemoglobin 24.1 pg (28.0-32.0); Mean Corpuscular Hgb Conc. 31.4 g/dL (32.0-36.0); Monocytes % (auto) 9.3 % (0.0-12.0); Neutrophils % (auto) 80.1 % (37.0-80.0); Partial Thromboplastin Time 37.6 sec (24.6-33.4); Red Blood Cells 6.83 10^6/uL (4.0-5.20); White Blood Cell 6.2 10^3/uL (4.4-10.8)
[2022-08-13] MEDS ORDERED: POTASSIUM EFFERVESENT TAB 25 MEQ GT ONE (13:45)
[2022-08-13 18:58] LABS: INR 1.24 (0.9-1.15)
[2022-08-13] MEDS: DOCUSATE SOD 100 MG CAP PO PRN (20:06)
[2022-08-13] MEDS: ACETAMINOPHEN 325 MG TAB PO PRN (22:18)
[2022-08-13 23:53] LABS: INR 1.15 (0.9-1.15); Partial Thromboplastin Time 64.4 sec (24.6-33.4)
[2022-08-14] VITALS (22 sets, daily range): BP systolic 106–156; BP diastolic 61–100
[2022-08-14] MEDS: MORPHINE SULFATE INJ 2 MG/ml SYRG IV PRN (00:27)
[2022-08-14] MEDS: SODIUM CHLOR 0.9% PF (SALINE LOCK) 10ML VIAL/SYR IV SCH ×3 (06:23→22:00)
[2022-08-14] MEDS: ALBUTEROL SULF 2.5 MG/0.5ML(0.5%) NEB SOLN NEB SCH ×3 (06:24→18:06)
[2022-08-14] MEDS: IPRATROPIUM BROM 0.5 MG/2.5ML INH SOL NEB SCH ×3 (06:24→18:06)
[2022-08-14] MEDS: LEVOTHYROXINE SODIUM 100 MCG TAB PO SCH (06:25)
[2022-08-14] MEDS: HYDROcodone-ACET 5/325MG TAB PO PRN ×4 (06:26→22:31)
[2022-08-14 06:27] LABS: INR 1.16 (0.9-1.15)
[2022-08-14 06:40] LABS: Partial Thromboplastin Time 75.7 sec (24.6-33.4)
[2022-08-14 08:52] LABS: Albumin 2.8 g/dL (3.4-5.0); Calcium 8.8 mg/dL (8.5-10.1); Potassium 3.2 mmol/L (3.5-5.1)
[2022-08-14 08:55] LABS: BUN/Creatinine Ratio 20.4; Total Protein 7.1 g/dL (6.4-8.2)
[2022-08-14 09:51] LABS: Eosinophils # (auto) 0 10 ^3/uL (0-0.8); Monocytes # (auto) 0.6 10 ^3/uL (0-1.3); Nucleated Red Blood Cells % 0.2 %; White Blood Cell 6.1 10^3/uL (4.4-10.8)
[2022-08-14] MEDS: FUROSEMIDE 100 MG/10ML VIAL IV SCH (09:53)
[2022-08-14] MEDS: DOCUSATE SOD 100 MG CAP PO PRN (09:55)
[2022-08-14 09:57] LABS: Basophils # (auto) 0 10 ^3/uL (0-0.2); Basophils % (auto) 0.7 % (0.0-2.0); Eosinophils % (auto) 0.8 % (0.0-7.0); Hematocrit 52.4 % (36.0-46.0); Hemoglobin 16.5 g/dL (12.2-16.2); Lymphocytes # (auto) 0.7 10 ^3/uL (0.4-5.4); Lymphocytes % (auto) 12.2 % (10.0-50.0); Mean Corpuscular Hemoglobin 24.2 pg (28.0-32.0); Mean Corpuscular Hgb Conc. 31.5 g/dL (32.0-36.0); Mean Corpuscular Volume 76.8 fL (80.0-100.0); Monocytes % (auto) 9.3 % (0.0-12.0); Neutrophils # (auto) 4.7 10 ^3/uL (1.6-8.6); Red Blood Cells 6.83 10^6/uL (4.0-5.20)
[2022-08-14] MEDS: HEPARIN DRIP/D5W 100UNITS/ML 250 ML IV SCH (10:07)
[2022-08-14] MEDS ORDERED: PANTOPRAZOLE 40 MG/10 ML VIAL INJ IV ONE (15:15)
[2022-08-14] MEDS: MAGNESIUM SULFATE 1GM/100ML 100 ML IV SCH ×2 (15:41→22:31)
[2022-08-14] MEDS: POTASSIUM CHL 20MEQ/100ML 100 ML IV SCH ×2 (16:36→18:43)
[2022-08-15] VITALS (22 sets, daily range): BP systolic 88–141; BP diastolic 51–89
[2022-08-15] MEDS: MORPHINE SULFATE INJ 2 MG/ml SYRG IV PRN (00:06)
[2022-08-15] MEDS: HEPARIN DRIP/D5W 100UNITS/ML 250 ML IV SCH ×2 (00:17→13:30)
[2022-08-15] MEDS: HYDROcodone-ACET 5/325MG TAB PO PRN ×3 (03:18→23:31)
[2022-08-15 04:42] LABS: Basophils # (auto) 0 10 ^3/uL (0-0.2); Eosinophils # (auto) 0.1 10 ^3/uL (0-0.8); Lymphocytes # (auto) 0.9 10 ^3/uL (0.4-5.4); Monocytes # (auto) 0.6 10 ^3/uL (0-1.3); Neutrophils # (auto) 4.5 10 ^3/uL (1.6-8.6); Red Blood Cells 6.48 10^6/uL (4.0-5.20)
[2022-08-15 04:46] LABS: Basophils % (auto) 0.2 % (0.0-2.0); Eosinophils % (auto) 1.9 % (0.0-7.0); Hematocrit 49.8 % (36.0-46.0); Hemoglobin 15.7 g/dL (12.2-16.2); Lymphocytes % (auto) 15.1 % (10.0-50.0); Mean Corpuscular Hemoglobin 24.2 pg (28.0-32.0); Mean Corpuscular Hgb Conc. 31.6 g/dL (32.0-36.0); Mean Corpuscular Volume 76.8 fL (80.0-100.0); Monocytes % (auto) 9.8 % (0.0-12.0); Nucleated Red Blood Cells % 0.5 %; White Blood Cell 6.2 10^3/uL (4.4-10.8)
[2022-08-15 04:54] LABS: Red Cell Distribution Width 20.9 % (11.8-14.3)
[2022-08-15 05:02] LABS: Albumin 2.6 g/dL (3.4-5.0); Calcium 8.6 mg/dL (8.5-10.1); INR 1.13 (0.9-1.15); Magnesium 2.7 mg/dL (1.6-2.6); Potassium 3.8 mmol/L (3.5-5.1)
[2022-08-15 05:06] LABS: BUN/Creatinine Ratio 20.7; Bilirubin, Total 1.6 mg/dL (0.2-1.0); Total Protein 6.2 g/dL (6.4-8.2)
[2022-08-15 05:12] LABS: Partial Thromboplastin Time 75.2 sec (24.6-33.4)
[2022-08-15] MEDS: SODIUM CHLOR 0.9% PF (SALINE LOCK) 10ML VIAL/SYR IV SCH ×3 (06:00→21:31)
[2022-08-15] MEDS: IPRATROPIUM BROM 0.5 MG/2.5ML INH SOL NEB SCH ×3 (07:34→18:50)
[2022-08-15] MEDS: ALBUTEROL SULF 2.5 MG/0.5ML(0.5%) NEB SOLN NEB SCH ×3 (07:34→18:50)
[2022-08-15] MEDS: LEVOTHYROXINE SODIUM 100 MCG TAB PO SCH (08:24)
[2022-08-15] MEDS: PANTOPRAZOLE 40 MG/10 ML VIAL INJ IV SCH (10:03)
[2022-08-15] MEDS: FUROSEMIDE 100 MG/10ML VIAL IV SCH (10:03)
[2022-08-15] MEDS ORDERED: IOHEXOL 350 MG/ML 100ML IJ ONE ×2 (13:49→14:11)
[2022-08-15] MEDS ORDERED: fentaNYL CITRATE 100 MCG/2 ML VL ONE (13:50)
[2022-08-15] MEDS ORDERED: MIDAZOLAM HCL 2MG/2ML 2ml VIAL (1mg/ml) ONE (13:50)
[2022-08-15] MEDS ORDERED: ANGIOMAX 250 MG VIAL IV ONE (13:50)
[2022-08-15] MEDS ORDERED: LIDOCAINE 2%HCL (LOCAL ANESTH.) INJ 20ML MDV ONE (14:21)
[2022-08-15] MEDS ORDERED: LIDOCAINE 2%HCL (LOCAL ANESTH.) INJ 10ml MDV ONE ×3 (14:21→15:38)
[2022-08-15] MEDS ORDERED: HYDROmorphone HCL 2 MG/ML VL/or syr ONE (14:22)
[2022-08-15] MEDS ORDERED: HEPARIN SODIUM (PORCINE) 5000 UNITS/ML 1ML VIAL ONE (14:33)
[2022-08-15] MEDS ORDERED: PARoxetine 20 MG TAB PO ONE (20:00)
[2022-08-15] MEDS: ACETAMINOPHEN 325 MG TAB PO PRN (23:54)
[2022-08-16] VITALS (66 sets, daily range): BP systolic 58–153; BP diastolic 27–104
[2022-08-16] MEDS: HEPARIN DRIP/D5W 100UNITS/ML 250 ML IV SCH ×2 (01:25→14:35)
[2022-08-16] MEDS: MORPHINE SULFATE INJ 2 MG/ml SYRG IV PRN ×2 (04:20→08:37)
[2022-08-16] MEDS: ONDANSETRON HCL 4 MG/2 ML VIAL IV PRN ×2 (04:21→08:34)
[2022-08-16 04:53] LABS: Basophils # (auto) 0 10 ^3/uL (0-0.2); Basophils % (auto) 0.1 % (0.0-2.0); Eosinophils # (auto) 0.1 10 ^3/uL (0-0.8); Eosinophils % (auto) 0.6 % (0.0-7.0); Hematocrit 49.4 % (36.0-46.0); Hemoglobin 15.7 g/dL (12.2-16.2); Lymphocytes # (auto) 0.5 10 ^3/uL (0.4-5.4); Lymphocytes % (auto) 5.6 % (10.0-50.0); Mean Corpuscular Hemoglobin 24.3 pg (28.0-32.0); Mean Corpuscular Hgb Conc. 31.9 g/dL (32.0-36.0); Mean Corpuscular Volume 76.1 fL (80.0-100.0); Monocytes # (auto) 0.6 10 ^3/uL (0-1.3); Monocytes % (auto) 7.5 % (0.0-12.0); Neutrophils % (auto) 86.2 % (37.0-80.0); Nucleated Red Blood Cells % 0.1 %; Red Blood Cells 6.49 10^6/uL (4.0-5.20); White Blood Cell 8.2 10^3/uL (4.4-10.8)
[2022-08-16 04:55] LABS: Red Cell Distribution Width 20.8 % (11.8-14.3)
[2022-08-16 04:58] LABS: INR 1.19 (0.9-1.15)
[2022-08-16 05:24] LABS: Partial Thromboplastin Time 72.6 sec (24.6-33.4)
[2022-08-16] MEDS: HYDROcodone-ACET 5/325MG TAB PO PRN (05:31)
[2022-08-16 05:45] LABS: Albumin 2.7 g/dL (3.4-5.0); BUN/Creatinine Ratio 17.5; Calcium 8.8 mg/dL (8.5-10.1); Potassium 3.6 mmol/L (3.5-5.1)
[2022-08-16 05:47] LABS: Bilirubin, Total 1.7 mg/dL (0.2-1.0); Total Protein 7.2 g/dL (6.4-8.2)
[2022-08-16] MEDS: SODIUM CHLOR 0.9% PF (SALINE LOCK) 10ML VIAL/SYR IV SCH ×3 (06:00→23:04)
[2022-08-16] MEDS: ALBUTEROL SULF 2.5 MG/0.5ML(0.5%) NEB SOLN NEB SCH ×3 (06:41→18:31)
[2022-08-16] MEDS: IPRATROPIUM BROM 0.5 MG/2.5ML INH SOL NEB SCH ×3 (06:41→18:31)
[2022-08-16] MEDS: LEVOTHYROXINE SODIUM 100 MCG TAB PO SCH (06:47)
[2022-08-16] MEDS: PARoxetine 20 MG TAB PO SCH (10:00)
[2022-08-16] MEDS: FUROSEMIDE 100 MG/10ML VIAL IV SCH (10:00)
[2022-08-16] MEDS ORDERED: ATROPINE SULFATE 1 MG/1 ML VIAL ONE (11:01)
[2022-08-16] MEDS: NOREPINEPHRINE 8 MG/250ML KIT 250 ML IV SCH ×2 (11:05→16:43)
[2022-08-16] MEDS ORDERED: ROCURONIUM 10MG/ML 10ML VIAL IV ONE ×2 (11:10→11:15)
[2022-08-16] MEDS ORDERED: ETOMIDATE (2MG/ML) 20ML VIAL IV ONE ×2 (11:10→11:15)
[2022-08-16] MEDS: MIDAZOLAM DRIP 50 mg/50mL 50 ML IV SCH ×3 (11:29→19:07)
[2022-08-16] MEDS: fentaNYL Drip 2500mCg/250mlNS 250 ML IV SCH (11:29)
[2022-08-16] MEDS ORDERED: SODIUM CHLORIDE 0.9% 2,000 ML IV ONE (11:40)
[2022-08-16] MEDS: PANTOPRAZOLE 40 MG/10 ML VIAL INJ IV SCH (13:07)
[2022-08-16] MEDS: PROPOFOL 100 ML IV SCH (14:45)
[2022-08-16] MEDS: PHENYLEPHRINE IV 250 ML IV SCH ×2 (14:48→19:06)
[2022-08-17] VITALS (83 sets, daily range): BP systolic 56–128; BP diastolic 29–78
[2022-08-17] MEDS: HEPARIN DRIP/D5W 100UNITS/ML 250 ML IV SCH ×3 (03:45→17:56)
[2022-08-17 04:56] LABS: Basophils # (auto) 0.1 10 ^3/uL (0-0.2); Eosinophils # (auto) 0 10 ^3/uL (0-0.8); Monocytes # (auto) 1.3 10 ^3/uL (0-1.3); Neutrophils % (auto) 82.3 % (37.0-80.0); Nucleated Red Blood Cells % 0.1 %
[2022-08-17 04:59] LABS: Basophils % (auto) 0.5 % (0.0-2.0); Eosinophils % (auto) 0.3 % (0.0-7.0); Hematocrit 40.6 % (36.0-46.0); Hemoglobin 12.3 g/dL (12.2-16.2); Lymphocytes # (auto) 1.3 10 ^3/uL (0.4-5.4); Lymphocytes % (auto) 8.4 % (10.0-50.0); Mean Corpuscular Hemoglobin 23.8 pg (28.0-32.0); Mean Corpuscular Hgb Conc. 30.4 g/dL (32.0-36.0); Mean Corpuscular Volume 78.4 fL (80.0-100.0); Monocytes % (auto) 8.5 % (0.0-12.0); Red Blood Cells 5.18 10^6/uL (4.0-5.20); White Blood Cell 15.7 10^3/uL (4.4-10.8)
[2022-08-17 05:15] LABS: Calcium 8.6 mg/dL (8.5-10.1); Potassium 4.3 mmol/L (3.5-5.1)
[2022-08-17 05:18] LABS: BUN/Creatinine Ratio 12.8
[2022-08-17 05:24] LABS: INR 1.29 (0.9-1.15)
[2022-08-17 05:27] LABS: Red Cell Distribution Width 20.7 % (11.8-14.3)
[2022-08-17] MEDS: ALBUTEROL SULF 2.5 MG/0.5ML(0.5%) NEB SOLN NEB SCH ×2 (05:36→17:46)
[2022-08-17] MEDS: IPRATROPIUM BROM 0.5 MG/2.5ML INH SOL NEB SCH ×2 (05:37→17:46)
[2022-08-17 05:47] LABS: Partial Thromboplastin Time 108.2 sec (24.6-33.4)
[2022-08-17] MEDS: SODIUM CHLOR 0.9% PF (SALINE LOCK) 10ML VIAL/SYR IV SCH ×3 (06:09→22:15)
[2022-08-17] MEDS: LEVOTHYROXINE SODIUM 100 MCG TAB PO SCH (06:09)
[2022-08-17] MEDS: PANTOPRAZOLE 40 MG/10 ML VIAL INJ IV SCH (09:04)
[2022-08-17] MEDS: NOREPINEPHRINE 8 MG/250ML KIT 250 ML IV SCH (09:09)
[2022-08-17] MEDS: MIDAZOLAM DRIP 50 mg/50mL 50 ML IV SCH ×4 (09:10→20:29)
[2022-08-17] MEDS: PHENYLEPHRINE IV 250 ML IV SCH (09:11)
[2022-08-17] MEDS: PARoxetine 20 MG TAB PO SCH (09:21)
[2022-08-17] MEDS: NOREPINEPHRINE BITARTRATE 32 MG in SODIUM CHL 0.9% 218 ML IV SCH (11:15)
[2022-08-17] MEDS ORDERED: SODIUM CHLORIDE 0.9% 1,000 ML IV ONE (11:15)
[2022-08-17] MEDS: fentaNYL Drip 2500mCg/250mlNS 250 ML IV SCH (11:58)
[2022-08-17] MEDS: SODIUM CHLORIDE 0.9% 1,000 ML IV SCH (12:12)
[2022-08-17] MEDS: PHENYLEPHRINE INJ 80 MG in SODIUM CHL 0.9% 242 ML IV SCH ×2 (13:00→20:24)
[2022-08-17 14:07] LABS: INR 1.41 (0.9-1.15)
[2022-08-17 14:47] LABS: Partial Thromboplastin Time 93.3 sec (24.6-33.4)
[2022-08-17] MEDS: PROPOFOL 100 ML IV SCH (15:02)
[2022-08-17] MEDS: VASOPRESSIN 50 UNITS in D5W 5% 247.5 ML IV SCH (15:03)
[2022-08-17] MEDS ORDERED: levoFLOXacin 500MG 100 ML IV SCH (17:15)
[2022-08-17] MEDS ORDERED: levoFLOXacin 500MG 100 ML IV ONE (20:00)
[2022-08-17] MEDS ORDERED: SODIUM CHLORIDE 0.9% 500 ML IV ONE (20:30)
[2022-08-17] MEDS: DOPamine 1600MCG/ML D5W 250 ML IV SCH (20:30)
[2022-08-17] MEDS ORDERED: LINEZOLID 600MG/300ML 300 ML IV SCH (22:00)
[2022-08-17] MEDS ORDERED: PATIENTS OWN MEDICATION (ZYVOX 600 MG) IV SCH (22:00)
[2022-08-17] MEDS ORDERED: VANCOMYCIN PER PHARMACY 0 MG IV STA (22:09)
[2022-08-17] MEDS ORDERED: VANCOMYCIN 1GM/250ML 250 ML IV ONE (22:45)
[2022-08-17 23:32] LABS: INR 1.55 (0.9-1.15)
[2022-08-18] VITALS (105 sets, daily range): BP systolic 86–153; BP diastolic 28–71
[2022-08-18] MEDS: MIDAZOLAM DRIP 50 mg/50mL 50 ML IV SCH ×4 (00:07→22:55)
[2022-08-18] MEDS: fentaNYL Drip 2500mCg/250mlNS 250 ML IV SCH (00:15)
[2022-08-18] MEDS: metroNIDAZOLE 500MG/100ML 100 ML IV SCH ×4 (00:25→22:51)
[2022-08-18] MEDS: SODIUM CHLORIDE 0.9% 1,000 ML IV SCH ×2 (00:35→10:57)
[2022-08-18] MEDS ORDERED: CEFEPIME 1GM/ 50ML 50 ML IV ONE (02:54)
[2022-08-18] MEDS: PROPOFOL 100 ML IV SCH ×4 (04:13→21:42)
[2022-08-18] MEDS: HEPARIN DRIP/D5W 100UNITS/ML 250 ML IV SCH (04:21)
[2022-08-18 04:31] LABS: Basophils # (auto) 0.2 10 ^3/uL (0-0.2); Eosinophils # (auto) 0.8 10 ^3/uL (0-0.8); Eosinophils % (auto) 3.1 % (0.0-7.0); Mean Corpuscular Volume 83.1 fL (80.0-100.0); Monocytes # (auto) 1.8 10 ^3/uL (0-1.3)
[2022-08-18 04:33] LABS: Hematocrit 30.4 % (36.0-46.0); Lymphocytes # (auto) 1.8 10 ^3/uL (0.4-5.4); Lymphocytes % (auto) 7.3 % (10.0-50.0); Mean Corpuscular Hemoglobin 24.8 pg (28.0-32.0); Mean Corpuscular Hgb Conc. 29.8 g/dL (32.0-36.0); Monocytes % (auto) 7.5 % (0.0-12.0); Neutrophils # (auto) 19.6 10 ^3/uL (1.6-8.6); Neutrophils % (auto) 81.1 % (37.0-80.0); Nucleated Red Blood Cells % 0.2 %; Red Blood Cells 3.66 10^6/uL (4.0-5.20); White Blood Cell 24.2 10^3/uL (4.4-10.8)
[2022-08-18 04:37] LABS: Red Cell Distribution Width 20.9 % (11.8-14.3)
[2022-08-18 05:04] LABS: Potassium 4.8 mmol/L (3.5-5.1)
[2022-08-18 05:10] LABS: Albumin 1.8 g/dL (3.4-5.0); BUN/Creatinine Ratio 11.3; Calcium 7.8 mg/dL (8.5-10.1); Total Protein 4.9 g/dL (6.4-8.2)
[2022-08-18 05:17] LABS: Creatinine, Urine 155 mg/dL (30.0-125.0); Sodium Urine 16 mmol/L (40-220)
[2022-08-18] MEDS: CEFEPIME 2 GM in SODIUM CHL 0.9% 50 ML IV SCH (05:45)
[2022-08-18] MEDS: SODIUM CHLOR 0.9% PF (SALINE LOCK) 10ML VIAL/SYR IV SCH ×3 (05:50→22:51)
[2022-08-18] MEDS: IPRATROPIUM BROM 0.5 MG/2.5ML INH SOL NEB SCH ×3 (06:46→18:28)
[2022-08-18] MEDS: ALBUTEROL SULF 2.5 MG/0.5ML(0.5%) NEB SOLN NEB SCH ×3 (06:46→18:28)
[2022-08-18] MEDS: LEVOTHYROXINE SODIUM 100 MCG TAB PO SCH (07:00)
[2022-08-18] MEDS: DOPamine 1600MCG/ML D5W 250 ML IV SCH ×2 (07:47→11:26)
[2022-08-18] MEDS ORDERED: VANCOMYCIN PER PHARMACY 0 MG IV SCH (08:30)
[2022-08-18 09:07] LABS: Partial Thromboplastin Time > 139.0 sec (24.6-33.4)
[2022-08-18] MEDS: PARoxetine 20 MG TAB PO SCH (10:00)
[2022-08-18] MEDS ORDERED: levoFLOXacin 500MG 100 ML IV SCH (10:00)
[2022-08-18] MEDS ORDERED: VANCOMYCIN 1GM/250ML 250 ML IV ONE (10:00)
[2022-08-18] MEDS: PANTOPRAZOLE 40 MG/10 ML VIAL INJ IV SCH (10:33)
[2022-08-18] MEDS ORDERED: BUMETANIDE 2.5mg/10ml (0.25 mg/ml) INJ IV ONE (11:00)
[2022-08-18] MEDS: NOREPINEPHRINE BITARTRATE 32 MG in SODIUM CHL 0.9% 218 ML IV SCH ×2 (11:15→22:52)
[2022-08-18] MEDS ORDERED: SODIUM BICARB 50ML SYR 75 ML in SOD CHL 0.45% 1,000 ML IV SCH (11:15)
[2022-08-18] MEDS: VASOPRESSIN 50 UNITS in D5W 5% 247.5 ML IV SCH (11:15)
[2022-08-18 12:15] LABS: Urine Bacteria MANY /hpf (None Seen); Urine Blood 2+ /uL (Negative); Urine Hyaline Cast FEW /lpf (0 - 2); Urine Mucus FEW (None Seen); Urine Specific Gravity 1.019 (1.001-1.035); Urine WBC 48 /hpf (0 - 5)
[2022-08-18] MEDS ORDERED: SODIUM CHLORIDE 0.9% 1,000 ML IV ONE (13:30)
[2022-08-18] MEDS: ALBUMIN 25% 100 ML IV SCH ×2 (14:54→21:34)
[2022-08-18] MEDS: SODIUM BICARB 50ML SYR 75 ML in SOD CHL 0.45% 1,000 ML IV SCH (16:17)
[2022-08-18 16:40] LABS: INR 1.4 (0.9-1.15); Partial Thromboplastin Time 63.7 sec (24.6-33.4)
[2022-08-18] MEDS: FUROSEMIDE 100 MG/10ML VIAL IV SCH (18:01)
[2022-08-18] MEDS ORDERED: Jevity 1.2 Cal/Fiber 1 Liter GT SCH (19:30)
[2022-08-18 22:53] LABS: INR 1.29 (0.9-1.15); Partial Thromboplastin Time 59.5 sec (24.6-33.4)
[2022-08-19] VITALS (119 sets, daily range): BP systolic 86–148; BP diastolic 30–65
[2022-08-19] MEDS: CEFEPIME 2 GM in SODIUM CHL 0.9% 50 ML IV SCH ×2 (00:10→22:35)
[2022-08-19] MEDS: SODIUM BICARB 50ML SYR 75 ML in SOD CHL 0.45% 1,000 ML IV SCH ×4 (00:16→19:54)
[2022-08-19] MEDS: fentaNYL Drip 2500mCg/250mlNS 250 ML IV SCH ×3 (00:49→23:45)
[2022-08-19] MEDS: PROPOFOL 100 ML IV SCH ×6 (01:38→21:11)
[2022-08-19] MEDS: MIDAZOLAM DRIP 50 mg/50mL 50 ML IV SCH ×7 (01:38→23:37)
[2022-08-19] MEDS: PHENYLEPHRINE INJ 80 MG in SODIUM CHL 0.9% 242 ML IV SCH (03:07)
[2022-08-19 04:18] LABS: Basophils # (auto) 0.1 10 ^3/uL (0-0.2); Basophils % (auto) 0.5 % (0.0-2.0); Eosinophils # (auto) 0.1 10 ^3/uL (0-0.8)
[2022-08-19 04:21] LABS: Eosinophils % (auto) 0.4 % (0.0-7.0); Hematocrit 20.6 % (36.0-46.0); Lymphocytes # (auto) 0.7 10 ^3/uL (0.4-5.4); Lymphocytes % (auto) 3.2 % (10.0-50.0); Mean Corpuscular Hemoglobin 25.1 pg (28.0-32.0); Mean Corpuscular Hgb Conc. 31.2 g/dL (32.0-36.0); Mean Corpuscular Volume 80.4 fL (80.0-100.0); Monocytes # (auto) 1.2 10 ^3/uL (0-1.3); Monocytes % (auto) 5.5 % (0.0-12.0); Neutrophils % (auto) 90.4 % (37.0-80.0); Red Blood Cells 2.57 10^6/uL (4.0-5.20); White Blood Cell 21.1 10^3/uL (4.4-10.8)
[2022-08-19 04:37] LABS: Albumin 2.2 g/dL (3.4-5.0); Anion Gap 12 (5-15); BUN/Creatinine Ratio 10.4; Blood Urea Nitrogen 34 mg/dL (7-18); Calcium 7.1 mg/dL (8.5-10.1); Carbon Dioxide 22 mmol/L (21-32); Chloride 96 mmol/L (98-107); GFR African American 18 mL/min; GFR Non-African American 15 mL/min; Glucose 100 mg/dL (74-106); Potassium 4.9 mmol/L (3.5-5.1); Sodium 130 mmol/L (136-145)
[2022-08-19 04:40] LABS: Alanine Aminotransferase 141 U/L (13-56); Alkaline Phosphatase 59 U/L (45-117); Aspartate Aminotransferase 242 U/L (15-37); Bilirubin, Total 1.2 mg/dL (0.2-1.0); Total Protein 4.5 g/dL (6.4-8.2)
[2022-08-19 04:42] LABS: Hemoglobin 6.4 g/dL (12.2-16.2)
[2022-08-19] MEDS: ALBUMIN 25% 100 ML IV SCH (05:31)
[2022-08-19] MEDS: SODIUM CHLOR 0.9% PF (SALINE LOCK) 10ML VIAL/SYR IV SCH ×3 (06:03→21:31)
[2022-08-19] MEDS: IPRATROPIUM BROM 0.5 MG/2.5ML INH SOL NEB SCH ×3 (06:20→18:04)
[2022-08-19] MEDS: ALBUTEROL SULF 2.5 MG/0.5ML(0.5%) NEB SOLN NEB SCH ×3 (06:20→18:04)
[2022-08-19] MEDS: metroNIDAZOLE 500MG/100ML 100 ML IV SCH ×3 (06:28→21:30)
[2022-08-19] MEDS: HEPARIN DRIP/D5W 100UNITS/ML 250 ML IV SCH (06:34)
[2022-08-19] MEDS: DOPamine 1600MCG/ML D5W 250 ML IV SCH (06:37)
[2022-08-19] MEDS: FUROSEMIDE 100 MG/10ML VIAL IV SCH ×2 (06:39→17:18)
[2022-08-19] MEDS: LEVOTHYROXINE SODIUM 100 MCG TAB PO SCH (07:03)
[2022-08-19 07:09] LABS: Hematocrit 18.5 % (36.0-46.0)
[2022-08-19 07:17] LABS: Hemoglobin 5.8 g/dL (12.2-16.2)
[2022-08-19 07:22] LABS: INR 1.31 (0.9-1.15); Partial Thromboplastin Time 64.4 sec (24.6-33.4)
[2022-08-19] MEDS: PARoxetine 20 MG TAB PO SCH (08:50)
[2022-08-19] MEDS: PANTOPRAZOLE 40 MG/10 ML VIAL INJ IV SCH ×2 (10:09→21:31)
[2022-08-19] MEDS: VASOPRESSIN 50 UNITS in D5W 5% 247.5 ML IV SCH (11:15)
[2022-08-19] MEDS ORDERED: VANCOMYCIN 1GM/250ML 250 ML IV ONE (17:00)
[2022-08-19] MEDS: METOCLOPRAMIDE HCL 5MG/ml INJ 2ml VIAL IV SCH (21:31)
[2022-08-20] VITALS (102 sets, daily range): BP systolic 70–152; BP diastolic 32–101
[2022-08-20] MEDS: PROPOFOL 100 ML IV SCH ×7 (00:57→22:20)
[2022-08-20 01:12] LABS: Eosinophils # (auto) 0.1 10 ^3/uL (0-0.8); Eosinophils % (auto) 0.5 % (0.0-7.0); Neutrophils # (auto) 17.2 10 ^3/uL (1.6-8.6); Nucleated Red Blood Cells % 0.2 %; White Blood Cell 18.9 10^3/uL (4.4-10.8)
[2022-08-20 01:13] LABS: Basophils # (auto) 0 10 ^3/uL (0-0.2); Basophils % (auto) 0.2 % (0.0-2.0); Hematocrit 26.1 % (36.0-46.0); Hemoglobin 8.5 g/dL (12.2-16.2); Lymphocytes # (auto) 0.6 10 ^3/uL (0.4-5.4); Mean Corpuscular Hemoglobin 26.4 pg (28.0-32.0); Mean Corpuscular Hgb Conc. 32.5 g/dL (32.0-36.0); Mean Corpuscular Volume 81.2 fL (80.0-100.0); Monocytes % (auto) 5.3 % (0.0-12.0); Red Blood Cells 3.22 10^6/uL (4.0-5.20)
[2022-08-20 01:30] LABS: Bilirubin, Total 3.4 mg/dL (0.2-1.0); Potassium 4.1 mmol/L (3.5-5.1)
[2022-08-20 01:34] LABS: Red Cell Distribution Width 20.7 % (11.8-14.3)
[2022-08-20] MEDS: HEPARIN DRIP/D5W 100UNITS/ML 250 ML IV SCH ×2 (01:46→08:29)
[2022-08-20 01:53] LABS: Albumin 2.3 g/dL (3.4-5.0); Calcium 7.5 mg/dL (8.5-10.1); Total Protein 4.7 g/dL (6.4-8.2)
[2022-08-20 03:30] LABS: INR 1.3 (0.9-1.15); Partial Thromboplastin Time 62.8 sec (24.6-33.4)
[2022-08-20] MEDS: DOPamine 1600MCG/ML D5W 250 ML IV SCH ×2 (03:48→06:08)
[2022-08-20 04:09] LABS: BUN/Creatinine Ratio 11.4
[2022-08-20] MEDS: MIDAZOLAM DRIP 50 mg/50mL 50 ML IV SCH ×4 (04:25→19:10)
[2022-08-20] MEDS: SODIUM BICARB 50ML SYR 75 ML in SOD CHL 0.45% 1,000 ML IV SCH ×3 (04:26→22:30)
[2022-08-20] MEDS: SODIUM CHLOR 0.9% PF (SALINE LOCK) 10ML VIAL/SYR IV SCH ×3 (06:07→22:17)
[2022-08-20] MEDS: METOCLOPRAMIDE HCL 5MG/ml INJ 2ml VIAL IV SCH ×3 (06:07→22:17)
[2022-08-20] MEDS: metroNIDAZOLE 500MG/100ML 100 ML IV SCH ×3 (06:07→22:17)
[2022-08-20] MEDS: ALBUTEROL SULF 2.5 MG/0.5ML(0.5%) NEB SOLN NEB SCH ×3 (06:08→18:24)
[2022-08-20] MEDS: NOREPINEPHRINE BITARTRATE 32 MG in SODIUM CHL 0.9% 218 ML IV SCH (06:08)
[2022-08-20] MEDS: IPRATROPIUM BROM 0.5 MG/2.5ML INH SOL NEB SCH ×3 (06:08→18:24)
[2022-08-20] MEDS: FUROSEMIDE 100 MG/10ML VIAL IV SCH (06:48)
[2022-08-20] MEDS: LEVOTHYROXINE SODIUM 100 MCG TAB PO SCH (07:21)
[2022-08-20] MEDS: PARoxetine 20 MG TAB PO SCH (10:01)
[2022-08-20] MEDS: PANTOPRAZOLE 40 MG/10 ML VIAL INJ IV SCH ×2 (10:01→22:17)
[2022-08-20] MEDS: fentaNYL Drip 2500mCg/250mlNS 250 ML IV SCH (11:10)
[2022-08-20] MEDS: VASOPRESSIN 50 UNITS in D5W 5% 247.5 ML IV SCH (11:15)
[2022-08-20] MEDS ORDERED: VANCOMYCIN 1GM/250ML 250 ML IV ONE (17:00)
[2022-08-20] MEDS ORDERED: PHENYLEPHRINE HCL 10 MG/ML VL ONE (20:58)
[2022-08-20] MEDS ORDERED: PHENYLEPHRINE IV 250 ML IV ONE (20:58)
[2022-08-20] MEDS: PHENYLEPHRINE INJ 80 MG in SODIUM CHL 0.9% 242 ML IV SCH (22:29)
[2022-08-20] MEDS: CEFEPIME 2 GM in SODIUM CHL 0.9% 50 ML IV SCH (23:23)
[2022-08-21] VITALS (105 sets, daily range): BP systolic 87–129; BP diastolic 44–81
[2022-08-21] MEDS: MIDAZOLAM DRIP 50 mg/50mL 50 ML IV SCH ×4 (00:03→17:50)
[2022-08-21] MEDS: NOREPINEPHRINE BITARTRATE 32 MG in SODIUM CHL 0.9% 218 ML IV SCH ×2 (01:07→16:37)
[2022-08-21] MEDS: fentaNYL Drip 2500mCg/250mlNS 250 ML IV SCH ×2 (01:47→16:37)
[2022-08-21] MEDS: DOPamine 1600MCG/ML D5W 250 ML IV SCH (04:02)
[2022-08-21 04:15] LABS: Mean Corpuscular Hemoglobin 26.4 pg (28.0-32.0)
[2022-08-21 04:19] LABS: Mean Corpuscular Hgb Conc. 32.4 g/dL (32.0-36.0); Mean Corpuscular Volume 81.3 fL (80.0-100.0); Red Blood Cells 3.81 10^6/uL (4.0-5.20); White Blood Cell 26.2 10^3/uL (4.4-10.8)
[2022-08-21 04:22] LABS: Red Cell Distribution Width 21.6 % (11.8-14.3)
[2022-08-21 04:23] LABS: Basophils % (manual) 0 (0.0-2.0); Blast Cells 0; Eosinophils % (manual) 0 (0-7); Metamyelocytes % 0; Potassium 3.4 mmol/L (3.5-5.1); Promyelocytes % 0; Reactive Lymphocytes 0
[2022-08-21 04:26] LABS: INR 1.49 (0.9-1.15); Partial Thromboplastin Time 61.3 sec (24.6-33.4)
[2022-08-21 04:27] LABS: Albumin 2.2 g/dL (3.4-5.0); BUN/Creatinine Ratio 11.6; Calcium 7.6 mg/dL (8.5-10.1)
[2022-08-21 04:30] LABS: Bilirubin, Total 4.4 mg/dL (0.2-1.0); Total Protein 5.7 g/dL (6.4-8.2)
[2022-08-21] MEDS: HEPARIN DRIP/D5W 100UNITS/ML 250 ML IV SCH ×2 (05:00→06:37)
[2022-08-21] MEDS: IPRATROPIUM BROM 0.5 MG/2.5ML INH SOL NEB SCH ×3 (05:41→18:10)
[2022-08-21] MEDS: ALBUTEROL SULF 2.5 MG/0.5ML(0.5%) NEB SOLN NEB SCH ×3 (05:41→18:10)
[2022-08-21] MEDS: SODIUM CHLOR 0.9% PF (SALINE LOCK) 10ML VIAL/SYR IV SCH ×3 (05:50→21:39)
[2022-08-21] MEDS: METOCLOPRAMIDE HCL 5MG/ml INJ 2ml VIAL IV SCH ×3 (05:50→21:39)
[2022-08-21] MEDS: metroNIDAZOLE 500MG/100ML 100 ML IV SCH ×3 (05:50→21:39)
[2022-08-21 05:56] LABS: Band Neutrophils % (manual) 14; Lymphocytes % (manual) 3 (10.0-50.0); Monocytes % (manual) 5 (0-12); Myelocytes % 3
[2022-08-21] MEDS: LEVOTHYROXINE SODIUM 100 MCG TAB PO SCH (06:36)
[2022-08-21] MEDS: POTASSIUM CHL 20MEQ/100ML 100 ML IV SCH ×2 (08:11→09:10)
[2022-08-21] MEDS: PANTOPRAZOLE 40 MG/10 ML VIAL INJ IV SCH ×2 (09:30→21:39)
[2022-08-21] MEDS: PARoxetine 20 MG TAB PO SCH (09:58)
[2022-08-21] MEDS: PHENYLEPHRINE INJ 80 MG in SODIUM CHL 0.9% 242 ML IV SCH ×2 (11:15→18:21)
[2022-08-21] MEDS: VASOPRESSIN 50 UNITS in D5W 5% 247.5 ML IV SCH (11:15)
[2022-08-21] MEDS: PROPOFOL 100 ML IV SCH ×2 (13:09→22:56)
[2022-08-21] MEDS: FUROSEMIDE 100 MG/10ML VIAL IV SCH (17:39)
[2022-08-21] MEDS: CEFEPIME 2 GM in SODIUM CHL 0.9% 50 ML IV SCH (22:36)
[2022-08-22] VITALS (101 sets, daily range): BP systolic 50–120; BP diastolic 43–66
[2022-08-22] MEDS: MIDAZOLAM DRIP 50 mg/50mL 50 ML IV SCH ×3 (01:02→22:00)
[2022-08-22] MEDS: DOPamine 1600MCG/ML D5W 250 ML IV SCH (03:21)
[2022-08-22 04:39] LABS: Hematocrit 31.8 % (36.0-46.0); Mean Corpuscular Hgb Conc. 31.4 g/dL (32.0-36.0); Mean Corpuscular Volume 82.6 fL (80.0-100.0); Red Blood Cells 3.84 10^6/uL (4.0-5.20); White Blood Cell 29.3 10^3/uL (4.4-10.8)
[2022-08-22] MEDS: PHENYLEPHRINE INJ 80 MG in SODIUM CHL 0.9% 242 ML IV SCH ×3 (04:39→17:41)
[2022-08-22 04:43] LABS: Red Cell Distribution Width 21.9 % (11.8-14.3)
[2022-08-22 04:44] LABS: Basophils % (manual) 0 (0.0-2.0); Blast Cells 0; Eosinophils % (manual) 0 (0-7); Promyelocytes % 0; Reactive Lymphocytes 0
[2022-08-22 04:51] LABS: BUN/Creatinine Ratio 12.6; Calcium 7.4 mg/dL (8.5-10.1); Potassium 4.2 mmol/L (3.5-5.1)
[2022-08-22 05:02] LABS: INR 1.67 (0.9-1.15); Partial Thromboplastin Time 69.3 sec (24.6-33.4)
[2022-08-22] MEDS: HEPARIN DRIP/D5W 100UNITS/ML 250 ML IV SCH (05:27)
[2022-08-22] MEDS: fentaNYL Drip 2500mCg/250mlNS 250 ML IV SCH ×2 (05:28→16:59)
[2022-08-22] MEDS: SODIUM CHLOR 0.9% PF (SALINE LOCK) 10ML VIAL/SYR IV SCH ×3 (05:44→21:30)
[2022-08-22] MEDS: metroNIDAZOLE 500MG/100ML 100 ML IV SCH ×3 (05:44→21:52)
[2022-08-22] MEDS: METOCLOPRAMIDE HCL 5MG/ml INJ 2ml VIAL IV SCH ×3 (05:44→21:52)
[2022-08-22 06:51] LABS: Band Neutrophils % (manual) 14; Lymphocytes % (manual) 3 (10.0-50.0); Metamyelocytes % 4; Monocytes % (manual) 7 (0-12); Myelocytes % 6
[2022-08-22] MEDS: NOREPINEPHRINE BITARTRATE 32 MG in SODIUM CHL 0.9% 218 ML IV SCH (06:58)
[2022-08-22] MEDS: LEVOTHYROXINE SODIUM 100 MCG TAB PO SCH (07:01)
[2022-08-22] MEDS: FUROSEMIDE 100 MG/10ML VIAL IV SCH (09:15)
[2022-08-22] MEDS: PANTOPRAZOLE 40 MG/10 ML VIAL INJ IV SCH ×2 (09:15→21:52)
[2022-08-22] MEDS: ALBUTEROL SULF 2.5 MG/0.5ML(0.5%) NEB SOLN NEB SCH ×3 (09:39→18:22)
[2022-08-22] MEDS: IPRATROPIUM BROM 0.5 MG/2.5ML INH SOL NEB SCH ×3 (09:40→18:22)
[2022-08-22] MEDS: FUROSEMIDE 40 MG/4 ML VIAL IV SCH (10:00)
[2022-08-22] MEDS ORDERED: VANCOMYCIN 750mg/250ml 250 ML IV ONE (11:00)
[2022-08-22] MEDS: VASOPRESSIN 50 UNITS in D5W 5% 247.5 ML IV SCH (11:15)
[2022-08-22] MEDS: PROPOFOL 100 ML IV SCH (16:28)
[2022-08-22] MEDS: CEFEPIME 2 GM in SODIUM CHL 0.9% 50 ML IV SCH (23:05)
[2022-08-23] VITALS (103 sets, daily range): BP systolic 84–129; BP diastolic 44–67
[2022-08-23] MEDS: DOPamine 1600MCG/ML D5W 250 ML IV SCH ×2 (00:03→22:49)
[2022-08-23] MEDS: PROPOFOL 100 ML IV SCH ×2 (01:00→10:32)
[2022-08-23] MEDS: PHENYLEPHRINE INJ 80 MG in SODIUM CHL 0.9% 242 ML IV SCH ×2 (02:00→10:31)
[2022-08-23] MEDS: NOREPINEPHRINE BITARTRATE 32 MG in SODIUM CHL 0.9% 218 ML IV SCH (02:00)
[2022-08-23 04:30] LABS: Hematocrit 32.2 % (36.0-46.0); Mean Corpuscular Hemoglobin 26.1 pg (28.0-32.0); Mean Corpuscular Hgb Conc. 31.1 g/dL (32.0-36.0); Mean Corpuscular Volume 83.9 fL (80.0-100.0); Red Blood Cells 3.83 10^6/uL (4.0-5.20)
[2022-08-23 04:32] LABS: INR 1.68 (0.9-1.15); Partial Thromboplastin Time 66.3 sec (24.6-33.4)
[2022-08-23 04:37] LABS: BUN/Creatinine Ratio 10.9; Calcium 7.2 mg/dL (8.5-10.1); Potassium 4.1 mmol/L (3.5-5.1)
[2022-08-23 04:53] LABS: Basophils % (manual) 0 (0.0-2.0); Blast Cells 0; Eosinophils % (manual) 0 (0-7); Metamyelocytes % 0; Promyelocytes % 0; Reactive Lymphocytes 0; Red Cell Distribution Width 21.9 % (11.8-14.3); White Blood Cell 31.1 10^3/uL (4.4-10.8)
[2022-08-23] MEDS: MIDAZOLAM DRIP 50 mg/50mL 50 ML IV SCH ×3 (05:00→19:46)
[2022-08-23] MEDS: METOCLOPRAMIDE HCL 5MG/ml INJ 2ml VIAL IV SCH ×3 (05:34→22:35)
[2022-08-23] MEDS: metroNIDAZOLE 500MG/100ML 100 ML IV SCH ×3 (05:35→22:34)
[2022-08-23] MEDS: SODIUM CHLOR 0.9% PF (SALINE LOCK) 10ML VIAL/SYR IV SCH ×3 (05:35→22:30)
[2022-08-23] MEDS: HEPARIN DRIP/D5W 100UNITS/ML 250 ML IV SCH (05:45)
[2022-08-23] MEDS: ALBUTEROL SULF 2.5 MG/0.5ML(0.5%) NEB SOLN NEB SCH ×3 (06:18→18:14)
[2022-08-23] MEDS: IPRATROPIUM BROM 0.5 MG/2.5ML INH SOL NEB SCH ×3 (06:18→18:14)
[2022-08-23] MEDS: fentaNYL Drip 2500mCg/250mlNS 250 ML IV SCH ×2 (06:21→20:32)
[2022-08-23 06:55] LABS: Band Neutrophils % (manual) 16; Lymphocytes % (manual) 8 (10.0-50.0); Monocytes % (manual) 7 (0-12); Myelocytes % 5
[2022-08-23] MEDS: LEVOTHYROXINE SODIUM 100 MCG TAB PO SCH (06:55)
[2022-08-23] MEDS: PANTOPRAZOLE 40 MG/10 ML VIAL INJ IV SCH ×2 (10:33→22:35)
[2022-08-23] MEDS: FUROSEMIDE 40 MG/4 ML VIAL IV SCH ×3 (10:33→22:30)
[2022-08-23] MEDS: VASOPRESSIN 50 UNITS in D5W 5% 247.5 ML IV SCH (11:15)
[2022-08-23] MEDS ORDERED: VANCOMYCIN 500 MG in D5W 5% 100 ML IV ONE (18:00)
[2022-08-23] MEDS: CEFEPIME 2 GM in SODIUM CHL 0.9% 50 ML IV SCH (23:55)
[2022-08-24] VITALS (93 sets, daily range): BP systolic 60–135; BP diastolic 25–70
[2022-08-24] MEDS: PHENYLEPHRINE INJ 80 MG in SODIUM CHL 0.9% 242 ML IV SCH ×3 (01:05→14:08)
[2022-08-24] MEDS: PROPOFOL 100 ML IV SCH ×3 (02:23→16:38)
[2022-08-24] MEDS: MIDAZOLAM DRIP 50 mg/50mL 50 ML IV SCH ×3 (02:24→16:46)
[2022-08-24] MEDS: NOREPINEPHRINE BITARTRATE 32 MG in SODIUM CHL 0.9% 218 ML IV SCH ×2 (03:01→16:46)
[2022-08-24 04:21] LABS: Hematocrit 32.7 % (36.0-46.0); Mean Corpuscular Hgb Conc. 30.7 g/dL (32.0-36.0)
[2022-08-24 04:26] LABS: Mean Corpuscular Hemoglobin 25.7 pg (28.0-32.0); Mean Corpuscular Volume 83.9 fL (80.0-100.0)
[2022-08-24 04:40] LABS: INR 1.67 (0.9-1.15)
[2022-08-24 04:48] LABS: Partial Thromboplastin Time 77.8 sec (24.6-33.4); Red Cell Distribution Width 22.4 % (11.8-14.3); White Blood Cell 39.7 10^3/uL (4.4-10.8)
[2022-08-24 04:50] LABS: Basophils % (manual) 0 (0.0-2.0); Blast Cells 0; Eosinophils % (manual) 0 (0-7); Metamyelocytes % 0; Myelocytes % 0; Reactive Lymphocytes 0
[2022-08-24 04:51] LABS: Albumin 1.6 g/dL (3.4-5.0); Calcium 7.2 mg/dL (8.5-10.1); Potassium 4.6 mmol/L (3.5-5.1)
[2022-08-24 04:55] LABS: BUN/Creatinine Ratio 11.6; Bilirubin, Total 5.6 mg/dL (0.2-1.0); Total Protein 4.5 g/dL (6.4-8.2)
[2022-08-24] MEDS: metroNIDAZOLE 500MG/100ML 100 ML IV SCH ×2 (05:44→14:07)
[2022-08-24] MEDS: METOCLOPRAMIDE HCL 5MG/ml INJ 2ml VIAL IV SCH ×2 (05:44→14:07)
[2022-08-24] MEDS: SODIUM CHLOR 0.9% PF (SALINE LOCK) 10ML VIAL/SYR IV SCH ×2 (05:44→14:07)
[2022-08-24] MEDS: LEVOTHYROXINE SODIUM 100 MCG TAB PO SCH (06:09)
[2022-08-24] MEDS: IPRATROPIUM BROM 0.5 MG/2.5ML INH SOL NEB SCH ×3 (06:16→17:47)
[2022-08-24] MEDS: ALBUTEROL SULF 2.5 MG/0.5ML(0.5%) NEB SOLN NEB SCH ×3 (06:16→17:47)
[2022-08-24 08:58] LABS: Band Neutrophils % (manual) 9; Lymphocytes % (manual) 9 (10.0-50.0); Monocytes % (manual) 4 (0-12); Promyelocytes % 1
[2022-08-24] MEDS: FUROSEMIDE 40 MG/4 ML VIAL IV SCH (10:00)
[2022-08-24] MEDS: PANTOPRAZOLE 40 MG/10 ML VIAL INJ IV SCH (10:23)
[2022-08-24] MEDS: fentaNYL Drip 2500mCg/250mlNS 250 ML IV SCH (10:27)
[2022-08-24] MEDS: HEPARIN DRIP/D5W 100UNITS/ML 250 ML IV SCH (10:29)
[2022-08-24] MEDS: VASOPRESSIN 50 UNITS in D5W 5% 247.5 ML IV SCH (11:15)
[2022-08-24] MEDS ORDERED: SODIUM CHLORIDE 0.9% 500 ML IV ONE (15:00)
[2022-08-24 15:53] LABS: INR 1.72 (0.9-1.15); Partial Thromboplastin Time 50.4 sec (24.6-33.4)
[2022-08-24] MEDS ORDERED: LORazepam 2MG/ML-1ML VIAL IV PRN (19:00)
[2022-08-24] MEDS ORDERED: MORPHINE SULFATE INJ 2 MG/ml SYRG IV PRN (19:00)
[2022-08-24] MEDS ORDERED: AMIODARONE 450mg/250ml AE 250 ML IV SCH (22:30)
== END 2022-08-24 21:55 | DRG 130 ==
LOC: EDBD 23:04 → EDSEX 23:04 → ER 23:16 → TELE 08-11 06:25 → ICU WEST 08-11 08:54
PROVIDERS: ADMIT Nurse Practitioner Family; ATTEND Internal Medicine
PROC: 30233R1 Transfusion of Nonautologous Platelets into Peripheral Vein, Percutaneous Approach (ICD-10-PCS; 2022-08-12)
PROC: 5A0935A Assistance with Respiratory Ventilation, Less than 24 Consecutive Hours, High Flow/Velocity Cannula (ICD-10-PCS; principal; 2022-08-13)
PROC: 5A0935A Assistance with Respiratory Ventilation, Less than 24 Consecutive Hours, High Flow/Velocity Cannula (ICD-10-PCS; 2022-08-14)
PROC: 5A0935A Assistance with Respiratory Ventilation, Less than 24 Consecutive Hours, High Flow/Velocity Cannula (ICD-10-PCS; 2022-08-15)
PROC: 4A023N6 Measurement of Cardiac Sampling and Pressure, Right Heart, Percutaneous Approach (ICD-10-PCS; 2022-08-15)
PROC: 02CR3ZZ Extirpation of Matter from Left Pulmonary Artery, Percutaneous Approach (ICD-10-PCS; 2022-08-15)
PROC: 02CQ3ZZ Extirpation of Matter from Right Pulmonary Artery, Percutaneous Approach (ICD-10-PCS; 2022-08-15)
PROC: 5A1955Z Respiratory Ventilation, Greater than 96 Consecutive Hours (ICD-10-PCS; 2022-08-16)
PROC: 0BH17EZ Insertion of Endotracheal Airway into Trachea, Via Natural or Artificial Opening (ICD-10-PCS; 2022-08-16)
PROC: 02HV33Z Insertion of Infusion Device into Superior Vena Cava, Percutaneous Approach (ICD-10-PCS; 2022-08-16)
PROC: B548ZZA Ultrasonography of Superior Vena Cava, Guidance (ICD-10-PCS; 2022-08-16)
PROC: 03HY32Z Insertion of Monitoring Device into Upper Artery, Percutaneous Approach (ICD-10-PCS; 2022-08-17)
PROC: 4A133B1 Monitoring of Arterial Pressure, Peripheral, Percutaneous Approach (ICD-10-PCS; 2022-08-17)
PROC: 4A133J1 Monitoring of Arterial Pulse, Peripheral, Percutaneous Approach (ICD-10-PCS; 2022-08-17)
PROC: 30233N1 Transfusion of Nonautologous Red Blood Cells into Peripheral Vein, Percutaneous Approach (ICD-10-PCS; 2022-08-19)
DX: J96.01 Acute respiratory failure with hypoxia (principal); I26.99 Other pulmonary embolism without acute cor pulmonale; I46.9 Cardiac arrest, cause unspecified; R65.21 Severe sepsis with septic shock; A41.9 Sepsis, unspecified organism; D68.59 Other primary thrombophilia; I27.20 Pulmonary hypertension, unspecified; I82.402 Acute embolism and thrombosis of unspecified deep veins of left lower extremity; N17.9 Acute kidney failure, unspecified; Z20.822 Contact with and (suspected) exposure to COVID-19; D69.6 Thrombocytopenia, unspecified; I50.9 Heart failure, unspecified; E03.9 Hypothyroidism, unspecified; E66.01 Morbid (severe) obesity due to excess calories; N39.0 Urinary tract infection, site not specified; G89.29 Other chronic pain; I11.0 Hypertensive heart disease with heart failure; B96.1 Klebsiella pneumoniae [K. pneumoniae] as the cause of diseases classified elsewhere; E11.9 Type 2 diabetes mellitus without complications; E11.51 Type 2 diabetes mellitus with diabetic peripheral angiopathy without gangrene; I25.10 Atherosclerotic heart disease of native coronary artery without angina pectoris; J44.9 Chronic obstructive pulmonary disease, unspecified; Z86.73 Personal history of transient ischemic attack (TIA), and cerebral infarction without residual deficits; Z88.2 Allergy status to sulfonamides; Z88.6 Allergy status to analgesic agent; Z68.39 Body mass index [BMI] 39.0-39.9, adult; Z74.01 Bed confinement status; Z79.01 Long term (current) use of anticoagulants; Z89.511 Acquired absence of right leg below knee; Z89.611 Acquired absence of right leg above knee; Z99.11 Dependence on respirator [ventilator] status
CPT/HCPCS: 33915; 36415; 36600; 71045; 71275; 80048; 80053; 80202; 81001; 81025; 82570; 82607; 82746; 82805; 83605; 83735; 83880; 84300; 84443; 84484; 85007; 85014; 85018; 85025; 85027; 85610; 85730; 86850; 86900; 86901; 86920; 87040; 87070; 87081; 87086; 87088; 87186; 87205; 87278; 87426; 93005; 93306; 93451; 93970; 94002; 94003; 94640; 96365; 96372; 96375; 99152; 99153; 99291; C9113; G0378; J0461; J1956; J2001; J2250; J2405; J2704; J3480; J3490; J7060; P9047